=== PATIENT | male | born 1940 | race Caucasian/White ===

== ENCOUNTER 2024-06-02 07:03 | Day surgery (SDC) | payer MEDICARE ==
[~2024-06-02 07:03] MED LIST: Propofol 200 MG/20 ML SDV ONE; fentaNYL 50 MCG/ML SDV ONE
[2024-06-02] MEDS: Sodium Chloride 0.9% 1,000 ML IV SCH (07:44)
== END 2024-06-02 10:00 | disposition home or self-care (01) ==
LOC: JP.SDS 07:03
PROVIDERS: ATTEND Surgery
DX: R13.10 Dysphagia, unspecified (principal); I12.9 Hypertensive chronic kidney disease with stage 1 through stage 4 chronic kidney disease, or unspecified chronic kidney disease; N18.9 Chronic kidney disease, unspecified; K22.89 Other specified disease of esophagus
CPT/HCPCS: 00731; 43239; 88305; J2704; J3010; J7030